=== PATIENT | male | born 1965 | race Caucasian/White ===

== ENCOUNTER 2017-07-27 06:07 | Emergency (ER) | payer SELFPAY, OTHER | END 2017-07-27 08:40 | disposition left against medical advice (07) | LOC: FTE 06:07 | DX: Z53.21 Procedure and treatment not carried out due to patient leaving prior to being seen by health care provider (principal) ==

== ENCOUNTER 2017-07-27 11:03 | Emergency (ER) | payer OTHER ==
[2017-07-27] MEDS: ONDANSETRON 4 MG INJ IV (12:34)
[2017-07-27] MEDS: morphine 10 MG INJ IV (12:34)
[2017-07-27 12:50] LABS: ADD MAN DIFF? NO
[2017-07-27 12:55] LABS: BASOPHILS % 0.5 % (0.0-2.0); EOSINOPHILS # 0.2 10^3/ul (0.0-0.5); HEMATOCRIT 34.8 % (42.0-52.0); LYMPHOCYTES # 1.9 10^3/ul (0.8-2.9); LYMPHOCYTES % 23.5 % (15.0-51.0); MEAN CORPUSCULAR HEMOGLOBIN 28.5 pg (29.0-33.0); MEAN CORPUSCULAR HGB CONC 31.6 g/dl (32.0-37.0); MEAN CORPUSCULAR VOLUME 90.2 fl (82.0-101.0); MEAN PLATELET VOLUME 10.3 fl (7.4-10.4); MONOCYTE # 0.7 10^3/ul (0.3-0.9); MONOCYTES % 8.6 % (0.0-11.0); NEUTROPHIL # 5.2 10^3/ul (1.6-7.5); NEUTROPHILS % 64.2 % (39.0-77.0); PLATELET COUNT 267 10^3/UL (140-415); RED BLOOD COUNT 3.86 10^6/ul (4.70-6.10); RED CELL DISTRIBUTION WIDTH 17.5 % (11.5-14.5)
[2017-07-27 14:04] LABS: ALANINE AMINOTRANSFERASE 19 IU/L (13-69); ALBUMIN 4.2 g/dl (3.3-4.9); ALKALINE PHOSPHATASE 95 IU/L (42-121); AMYLASE 138 U/L (11-123); ANION GAP 16 (8-16); ASPARTATE AMINO TRANSFERASE 31 IU/L (15-46); BILIRUBIN,INDIRECT 0.3 mg/dl (0-1.1); BILIRUBIN,TOTAL 0.3 mg/dl (0.2-1.3); BLOOD UREA NITROGEN 17 mg/dl (7-20); CALCIUM 9.2 mg/dl (8.4-10.2); CARBON DIOXIDE 32 mmol/L (21-31); CHLORIDE 105 mmol/L (97-110); CREATININE 1.37 mg/dl (0.61-1.24); GLUCOSE 105 mg/dl (70-220); LIPASE 368 U/L (23-300); POTASSIUM 4.2 mmol/L (3.5-5.1); SODIUM 149 mmol/L (135-144); TOTAL PROTEIN 8.4 g/dl (6.1-8.1)
[2017-07-27 14:10] LABS: INR 0.99; PROTIME 13.2 Sec (11.9-14.9)
[2017-07-27 14:29] LABS: ADD UMIC YES; UR ASCORBIC ACID NEGATIVE (NEGATIVE); UR BILIRUBIN (Dip) NEGATIVE (NEGATIVE); UR BLOOD (Dip) NEGATIVE (NEGATIVE); UR CLARITY SLIGHTLY CLOUDY (CLEAR); UR COLOR GREEN (YELLOW); UR GLUCOSE (Dip) NEGATIVE (NEGATIVE); UR KETONES (Dip) NEGATIVE (NEGATIVE); UR LEUKOCYTE ESTERASE (Dip) TRACE Leu/ul (NEGATIVE); UR NITRITE (Dip) NEGATIVE (NEGATIVE); UR RBC 0 /HPF (0-5); UR TOTAL PROTEIN (Dip) NEGATIVE (NEGATIVE); UR UROBILINOGEN (Dip) NEGATIVE (NEGATIVE); UR WBC 1 /HPF (0-5)
[2017-07-27] MEDS: CEFTRIAXONE 500 MG INJ IVPB (15:46)
[2017-07-27] MEDS: SOD CHLORIDE 0.9% 1,000 ML IV (15:46)
[2017-07-27] MEDS: AZITHROMYCIN 250 MG TAB PO (15:49)
[2017-07-27] MEDS: TAMSULOSIN (SR) 0.4 MG CAP PO (16:18)
== END 2017-07-27 17:00 | disposition home or self-care (01) ==
LOC: FTE 17:00
DX: N45.1 Epididymitis (principal); N43.3 Hydrocele, unspecified; I10 Essential (primary) hypertension; E11.9 Type 2 diabetes mellitus without complications; Z87.891 Personal history of nicotine dependence
CPT/HCPCS: 51702; 74176; 76870; 80053; 81001; 82150; 83690; 85025; 85610; 85730; 96374; 96375; 99285-25

== ENCOUNTER 2017-10-01 04:13 | Emergency (ER) | payer OTHER, MEDICAID ==
[2017-10-01 07:19] LABS: ADD MAN DIFF? NO
[2017-10-01 07:24] LABS: WHITE BLOOD COUNT 7.8 10^3/ul (4.8-10.8)
[2017-10-01 07:24] LABS: BASOPHIL # 0.1 10^3/ul (0.0-0.1); BASOPHILS % 0.8 % (0.0-2.0); EOSINOPHILS # 0.2 10^3/ul (0.0-0.5); HEMATOCRIT 33.5 % (42.0-52.0); HEMOGLOBIN 10.8 g/dl (14.0-18.0); LYMPHOCYTES # 1.5 10^3/ul (0.8-2.9); LYMPHOCYTES % 19.7 % (15.0-51.0); MEAN CORPUSCULAR HEMOGLOBIN 28.7 pg (29.0-33.0); MEAN CORPUSCULAR HGB CONC 32.2 g/dl (32.0-37.0); MEAN CORPUSCULAR VOLUME 89.1 fl (82.0-101.0); MEAN PLATELET VOLUME 10.3 fl (7.4-10.4); MONOCYTE # 0.6 10^3/ul (0.3-0.9); MONOCYTES % 7.8 % (0.0-11.0); NEUTROPHIL # 5.3 10^3/ul (1.6-7.5); NEUTROPHILS % 68.4 % (39.0-77.0); PLATELET COUNT 171 10^3/UL (140-415); RED BLOOD COUNT 3.76 10^6/ul (4.70-6.10); RED CELL DISTRIBUTION WIDTH 16.2 % (11.5-14.5)
[2017-10-01 07:42] LABS: ADD UMIC NO; UR ASCORBIC ACID NEGATIVE (NEGATIVE); UR BILIRUBIN (Dip) NEGATIVE (NEGATIVE); UR BLOOD (Dip) NEGATIVE (NEGATIVE); UR CLARITY CLEAR (CLEAR); UR COLOR STRAW (YELLOW); UR GLUCOSE (Dip) NEGATIVE (NEGATIVE); UR KETONES (Dip) NEGATIVE (NEGATIVE); UR LEUKOCYTE ESTERASE (Dip) NEGATIVE Leu/ul (NEGATIVE); UR NITRITE (Dip) NEGATIVE (NEGATIVE); UR SPECIFIC GRAVITY (Dip) 1.006 (1.003-1.030); UR TOTAL PROTEIN (Dip) NEGATIVE (NEGATIVE); UR UROBILINOGEN (Dip) NEGATIVE (NEGATIVE)
[2017-10-01 07:43] LABS: ALANINE AMINOTRANSFERASE 34 IU/L (13-69); ALBUMIN 4.2 g/dl (3.3-4.9); ALBUMIN/GLOBULIN RATIO 1.16; ALKALINE PHOSPHATASE 119 IU/L (42-121); ANION GAP 12 (8-16); ASPARTATE AMINO TRANSFERASE 23 IU/L (15-46); BILIRUBIN,INDIRECT 0.5 mg/dl (0-1.1); BILIRUBIN,TOTAL 0.5 mg/dl (0.2-1.3); BLOOD UREA NITROGEN 11 mg/dl (7-20); CALCIUM 9.2 mg/dl (8.4-10.2); CARBON DIOXIDE 27 mmol/L (21-31); CHLORIDE 107 mmol/L (97-110); CREATININE 1.09 mg/dl (0.61-1.24); GLUCOSE 88 mg/dl (70-220); LIPASE 76 U/L (23-300); POTASSIUM 3.7 mmol/L (3.5-5.1); SODIUM 142 mmol/L (135-144); TOTAL PROTEIN 7.8 g/dl (6.1-8.1)
[2017-10-01 08:00] LABS: CREATINE KINASE 128 IU/L (23-200)
[2017-10-01] MEDS: FUROSEMIDE 20 MG TAB PO (08:46)
[2017-10-01] MEDS: NAPROXEN 500 MG TAB PO (08:46)
== END 2017-10-01 09:00 | disposition home or self-care (01) ==
LOC: E/R 04:13
DX: M79.661 Pain in right lower leg (principal); M79.662 Pain in left lower leg; R60.0 Localized edema; Z87.891 Personal history of nicotine dependence
CPT/HCPCS: 36415; 80053; 81003; 82550; 83690; 85025; 93970; 99284-25

== ENCOUNTER 2017-10-10 11:00 | Emergency (ER) | payer OTHER, MEDICAID ==
[2017-10-10 13:43] LABS: ADD MAN DIFF? NO
[2017-10-10 13:49] LABS: BASOPHILS % 0.4 % (0.0-2.0); EOSINOPHILS # 0.2 10^3/ul (0.0-0.5); EOSINOPHILS % 1.7 % (0.0-7.0); HEMATOCRIT 31.5 % (42.0-52.0); HEMOGLOBIN 10.2 g/dl (14.0-18.0); IMMATURE GRANS #M 0.02 10^3/ul; IMMATURE GRANS % (M) 0.2 %; LYMPHOCYTES # 1.6 10^3/ul (0.8-2.9); LYMPHOCYTES % 15.9 % (15.0-51.0); MEAN CORPUSCULAR HEMOGLOBIN 29.2 pg (29.0-33.0); MEAN CORPUSCULAR HGB CONC 32.4 g/dl (32.0-37.0); MEAN CORPUSCULAR VOLUME 90.3 fl (82.0-101.0); MEAN PLATELET VOLUME 9.6 fl (7.4-10.4); MONOCYTE # 0.9 10^3/ul (0.3-0.9); MONOCYTES % 8.5 % (0.0-11.0); NEUTROPHIL # 7.3 10^3/ul (1.6-7.5); NEUTROPHILS % 73.3 % (39.0-77.0); PLATELET COUNT 242 10^3/UL (140-415); RED BLOOD COUNT 3.49 10^6/ul (4.70-6.10); RED CELL DISTRIBUTION WIDTH 15.8 % (11.5-14.5)
[2017-10-10] MEDS: KETOROLAC 30 MG INJ IM (14:06)
[2017-10-10 14:09] LABS: ALANINE AMINOTRANSFERASE 28 IU/L (13-69); ALBUMIN 3.8 g/dl (3.3-4.9); ALBUMIN/GLOBULIN RATIO 1.02; ALKALINE PHOSPHATASE 87 IU/L (42-121); ANION GAP 11 (8-16); ASPARTATE AMINO TRANSFERASE 30 IU/L (15-46); BILIRUBIN,INDIRECT 0.2 mg/dl (0-1.1); BILIRUBIN,TOTAL 0.2 mg/dl (0.2-1.3); BLOOD UREA NITROGEN 10 mg/dl (7-20); CALCIUM 8.9 mg/dl (8.4-10.2); CARBON DIOXIDE 29 mmol/L (21-31); CHLORIDE 104 mmol/L (97-110); CREATININE 1.12 mg/dl (0.61-1.24); GLUCOSE 64 mg/dl (70-220); POTASSIUM 3.4 mmol/L (3.5-5.1); SODIUM 141 mmol/L (135-144); TOTAL PROTEIN 7.5 g/dl (6.1-8.1)
[2017-10-10 14:20] LABS: TROPONIN-I < 0.010 ng/ml (0.000-0.120)
== END 2017-10-10 15:14 | disposition home or self-care (01) ==
LOC: FTE 11:00
DX: R07.89 Other chest pain (principal); F17.210 Nicotine dependence, cigarettes, uncomplicated; E11.9 Type 2 diabetes mellitus without complications
CPT/HCPCS: 36415; 71045; 80053; 82962; 84484; 85025; 93005; 96372; 99285-25

== ENCOUNTER 2017-10-30 18:58 | Emergency (ER) | payer SELFPAY, OTHER | END 2017-10-30 22:05 | disposition left against medical advice (07) | LOC: FTE 18:58 | DX: Z53.21 Procedure and treatment not carried out due to patient leaving prior to being seen by health care provider (principal) ==

== ENCOUNTER 2017-11-05 03:05 | Emergency (ER) | payer OTHER ==
[2017-11-05 04:26] LABS: ADD MAN DIFF? NO
[2017-11-05 04:27] LABS: BASOPHILS % 0.4 % (0.0-2.0); EOSINOPHILS # 0.3 10^3/ul (0.0-0.5); EOSINOPHILS % 2.7 % (0.0-7.0); HEMATOCRIT 33.9 % (42.0-52.0); HEMOGLOBIN 10.7 g/dl (14.0-18.0); LYMPHOCYTES # 1.7 10^3/ul (0.8-2.9); LYMPHOCYTES % 17.5 % (15.0-51.0); MEAN CORPUSCULAR HGB CONC 31.6 g/dl (32.0-37.0); MEAN CORPUSCULAR VOLUME 88.7 fl (82.0-101.0); MONOCYTE # 0.8 10^3/ul (0.3-0.9); MONOCYTES % 7.9 % (0.0-11.0); NEUTROPHILS % 71.2 % (39.0-77.0); PLATELET COUNT 171 10^3/UL (140-415); RED BLOOD COUNT 3.82 10^6/ul (4.70-6.10); RED CELL DISTRIBUTION WIDTH 15.4 % (11.5-14.5)
[2017-11-05 04:27] LABS: WHITE BLOOD COUNT 9.8 10^3/ul (4.8-10.8)
[2017-11-05 04:46] LABS: ANION GAP 12 (8-16); BLOOD UREA NITROGEN 16 mg/dl (7-20); CALCIUM 9.4 mg/dl (8.4-10.2); CARBON DIOXIDE 30 mmol/L (21-31); CHLORIDE 102 mmol/L (97-110); CREATININE 1.15 mg/dl (0.61-1.24); GLUCOSE 151 mg/dl (70-220); POTASSIUM 3.6 mmol/L (3.5-5.1); SODIUM 140 mmol/L (135-144)
[2017-11-05 04:48] LABS: INR 1.03; PROTIME 13.6 Sec (11.9-14.9); PT RATIO 1.1
[2017-11-05 04:49] LABS: PARTIAL THROMBOPLASTIN TIME 31.4 Sec (25.0-35.0)
[2017-11-05] MEDS: IOHEXOL 300MG/ML 150 ML BTL (04:57)
[2017-11-05] MEDS: SOD CHLORIDE 0.9% 100 ML (04:57)
[2017-11-05 04:58] LABS: TROPONIN-I < 0.012 ng/ml (0.000-0.120)
[2017-11-05] MEDS: ONDANSETRON 4 MG INJ IV (05:17)
[2017-11-05] MEDS: morphine 4 MG/ML VIAL IV (06:18)
[2017-11-05] MEDS: SOD CHLORIDE 0.9% 1,000 ML IV (06:42)
[2017-11-05] MEDS: NALOXONE (0.4 MG/ML) INJ IV (06:43)
[2017-11-05] MEDS: hydrALAzine 20 MG INJ IV (07:22)
[2017-11-05 07:32] LABS: AMPHETAMINE/METHAMPHETAMINE Positive (NEGATIVE); BARBITURATES Negative (NEGATIVE); BENZODIAZEPINES Negative (NEGATIVE); CANNABINOIDS Negative (NEGATIVE); COCAINE Negative (NEGATIVE); OPIATES Positive (NEGATIVE)
[2017-11-05 07:49] LABS: LIPASE 25 U/L (23-300)
[2017-11-05] MEDS: METOPROLOL (XL) 50 MG TAB PO (10:38)
== END 2017-11-05 12:00 | disposition home or self-care (01) ==
LOC: E/R 03:05
DX: S16.1XXA Strain of muscle, fascia and tendon at neck level, initial encounter (principal); T40.2X1A Poisoning by other opioids, accidental (unintentional), initial encounter; F11.10 Opioid abuse, uncomplicated; I10 Essential (primary) hypertension; E11.9 Type 2 diabetes mellitus without complications; M79.602 Pain in left arm; R51 Headache; X58.XXXA Exposure to other specified factors, initial encounter; Y92.9 Unspecified place or not applicable; Z87.891 Personal history of nicotine dependence
CPT/HCPCS: 36415; 70450; 70496; 70498; 71045; 80048; 80307; 83690; 84484; 85025; 85610; 85730; 93005; 96361; 96374; 96375; 99291-25

== ENCOUNTER 2017-11-06 08:05 | Emergency (ER) | payer OTHER ==
[2017-11-06] MEDS: IBUPROFEN 800 MG TAB PO (08:44)
== END 2017-11-06 08:48 | disposition home or self-care (01) ==
LOC: E/R 08:05
DX: N40.1 Benign prostatic hyperplasia with lower urinary tract symptoms (principal); R39.16 Straining to void; B30.9 Viral conjunctivitis, unspecified; M54.2 Cervicalgia; I10 Essential (primary) hypertension; E11.9 Type 2 diabetes mellitus without complications; F17.210 Nicotine dependence, cigarettes, uncomplicated
CPT/HCPCS: 99283; Z7502

== ENCOUNTER 2017-11-21 18:26 | Emergency (ER) | payer OTHER ==
[2017-11-21] MEDS: LIDOCAINE 1% (MDV) 10 ML INJ INJ (19:05)
[2017-11-21] MEDS: DIPHTH/TET/ACEL PERTUSS (ADULT) 0.5 ML VIAL IM* (20:05)
[2017-11-21] MEDS: KETOROLAC 15 MG INJ IV (20:06)
== END 2017-11-22 | disposition home or self-care (01) ==
LOC: E/R 11-22
DX: S01.511A Laceration without foreign body of lip, initial encounter (principal); I10 Essential (primary) hypertension; E11.9 Type 2 diabetes mellitus without complications; V18.0XXA Pedal cycle driver injured in noncollision transport accident in nontraffic accident, initial encounter; Z23 Encounter for immunization; Z87.891 Personal history of nicotine dependence
CPT/HCPCS: 12011; 70450; 72125; 90471; 90715; 96374; 99285-25

== ENCOUNTER 2018-02-01 03:03 | Emergency (ER) | payer OTHER ==
[2018-02-01 05:00] LABS: BARBITURATES Negative (NEGATIVE); BENZODIAZEPINES Negative (NEGATIVE); CANNABINOIDS Negative (NEGATIVE); COCAINE Negative (NEGATIVE); OPIATES Negative (NEGATIVE)
[2018-02-01 05:02] LABS: AMPHETAMINE/METHAMPHETAMINE Positive (NEGATIVE)
[2018-02-01 05:28] LABS: ADD MAN DIFF? NO
[2018-02-01 05:29] LABS: WHITE BLOOD COUNT 7.8 10^3/ul (4.8-10.8)
[2018-02-01 05:29] LABS: BASOPHILS % 0.1 % (0.0-2.0); EOSINOPHILS % 0.5 % (0.0-7.0); HEMATOCRIT 38.8 % (42.0-52.0); HEMOGLOBIN 12.7 g/dl (14.0-18.0); LYMPHOCYTES # 0.8 10^3/ul (0.8-2.9); LYMPHOCYTES % 9.6 % (15.0-51.0); MEAN CORPUSCULAR HEMOGLOBIN 28.6 pg (29.0-33.0); MEAN CORPUSCULAR HGB CONC 32.7 g/dl (32.0-37.0); MEAN CORPUSCULAR VOLUME 87.4 fl (82.0-101.0); MEAN PLATELET VOLUME 10.6 fl (7.4-10.4); MONOCYTE # 0.8 10^3/ul (0.3-0.9); MONOCYTES % 10.4 % (0.0-11.0); NEUTROPHIL # 6.2 10^3/ul (1.6-7.5); NEUTROPHILS % 79.1 % (39.0-77.0); PLATELET COUNT 206 10^3/UL (140-415); RED BLOOD COUNT 4.44 10^6/ul (4.70-6.10); RED CELL DISTRIBUTION WIDTH 16.2 % (11.5-14.5)
[2018-02-01] MEDS: NICARDipine HCL 30 MG CAPSULE PO (05:38)
[2018-02-01 05:53] LABS: ALANINE AMINOTRANSFERASE 19 IU/L (13-69); ALBUMIN 4.5 g/dl (3.3-4.9); ALKALINE PHOSPHATASE 134 IU/L (42-121); ANION GAP 13 (5-13); ASPARTATE AMINO TRANSFERASE 52 IU/L (15-46); BILIRUBIN,INDIRECT 0.8 mg/dl (0-1.1); BILIRUBIN,TOTAL 0.8 mg/dl (0.2-1.3); BLOOD UREA NITROGEN 18 mg/dl (7-20); CALCIUM 9.8 mg/dl (8.4-10.2); CARBON DIOXIDE 25 mmol/L (21-31); CHLORIDE 102 mmol/L (97-110); CREATININE 1.54 mg/dl (0.61-1.24); Estimated GFR 48 mL/min (>60); GLUCOSE 106 mg/dl (70-220); POTASSIUM 4.1 mmol/L (3.5-5.1); SODIUM 140 mmol/L (135-144); TOTAL PROTEIN 9.5 g/dl (6.1-8.1)
[2018-02-01 05:54] LABS: ACETAMINOPHEN < 10.0 ug/ml (10.0-30.0); ETHANOL < 10.0 mg/dl (0-0); SALICYLATE < 1.0 mg/dl (5.0-30.0)
[2018-02-01] MEDS: TAMSULOSIN (SR) 0.4 MG CAP PO (06:48)
[2018-02-01] MEDS: LOPERAMIDE 2 MG CAP PO (08:40)
== END 2018-02-01 18:21 ==
LOC: E/R 03:03
DX: T43.622A Poisoning by amphetamines, intentional self-harm, initial encounter (principal); R40.2142 Coma scale, eyes open, spontaneous, at arrival to emergency department; R40.2252 Coma scale, best verbal response, oriented, at arrival to emergency department; R40.2362 Coma scale, best motor response, obeys commands, at arrival to emergency department; I10 Essential (primary) hypertension; E11.9 Type 2 diabetes mellitus without complications; Z87.891 Personal history of nicotine dependence
CPT/HCPCS: 80053; 80307; 82962; 85025; 99285

== ENCOUNTER 2018-08-01 06:25 | Inpatient (IN) | payer OTHER ==
[2018-08-01] MEDS: NALOXONE 2 MG SYG IV (06:30)
[2018-08-01] MEDS: FENTAnyl (DRIP) 1000 mcg/100mL 100 ML IV (07:00)
[2018-08-01] MEDS: PROPOFOL 100 ML IV (07:00)
[2018-08-01] MEDS ORDERED: SUCCINYLCHOLINE CHLORIDE 100 MG/5 ML SYG IV (07:00)
[2018-08-01] MEDS ORDERED: ETOMIDATE 20 MG INJ (07:00)
[2018-08-01] MEDS: niCARdipine-NS 0.1MG/ML DRIP 200 ML IV (07:28)
[2018-08-01] MEDS: SOD CHLORIDE 0.9% 1,000 ML IV (07:33)
[2018-08-01] MEDS: ETOMIDATE 20 MG INJ IV (07:33)
[2018-08-01] MEDS: ONDANSETRON 4 MG INJ IV (07:33)
[2018-08-01] MEDS: SUCCINYLCHOLINE CHLORIDE 100 MG/5 ML SYG IV (07:33)
[2018-08-01 07:39] LABS: ADD MAN DIFF? NO
[2018-08-01] MEDS: CEFEPIME 2GM/50 ML (PMX) 50 ML IVPB (07:40)
[2018-08-01] MEDS: SODIUM CHLORIDE 0.9% 1L BAG IV* (07:40)
[2018-08-01 07:42] LABS: ABNORMAL IP MESSAGE 1; BASOPHIL # 0.1 10^3/ul (0.0-0.1); BASOPHILS % 0.3 % (0.0-2.0); EOSINOPHILS # 0.1 10^3/ul (0.0-0.5); EOSINOPHILS % 0.4 % (0.0-7.0); HEMATOCRIT 45.7 % (42.0-52.0); HEMOGLOBIN 14.7 g/dl (14.0-18.0); LYMPHOCYTES # 1.9 10^3/ul (0.8-2.9); LYMPHOCYTES % 7.8 % (15.0-51.0); MEAN CORPUSCULAR HEMOGLOBIN 28.5 pg (29.0-33.0); MEAN CORPUSCULAR HGB CONC 32.2 g/dl (32.0-37.0); MEAN CORPUSCULAR VOLUME 88.7 fl (82.0-101.0); MONOCYTE # 0.8 10^3/ul (0.3-0.9); MONOCYTES % 3.3 % (0.0-11.0); NEUTROPHIL # 21.4 10^3/ul (1.6-7.5); NEUTROPHILS % 87.5 % (39.0-77.0); PLATELET COUNT 224 10^3/UL (140-415); POSITIVE DIFF @See below; RED BLOOD COUNT 5.15 10^6/ul (4.70-6.10)
[2018-08-01 07:42] LABS: WHITE BLOOD COUNT 24.5 10^3/ul (4.8-10.8)
[2018-08-01 07:49] LABS: AADO2 Arterial 243.7 mmHg (7.0-24.0); Allen Test ACCEPTAB; Arterial Base Excess -2.7 mmol/L (-3.0-3); Arterial Blood Gas Oxygen Sat 99.4 mmHG (95.0-98.0); Arterial COHb 0.1 % (0.0-3.0); Arterial MetHb 0.3 % (0.0-1.5); Arterial pCO2 71.4 mmhg (35-45); MODE VENT - AC; Site Right Radial
[2018-08-01 08:01] LABS: INR 0.89; PARTIAL THROMBOPLASTIN TIME 28.8 Sec (23.0-35.0); PROTIME 12.2 Sec (11.9-14.9)
[2018-08-01 08:09] LABS: ALANINE AMINOTRANSFERASE 25 IU/L (13-69); ALBUMIN 5.1 g/dl (3.3-4.9); ALKALINE PHOSPHATASE 155 IU/L (42-121); ANION GAP 13 (5-13); ASPARTATE AMINO TRANSFERASE 36 IU/L (15-46); BILIRUBIN,INDIRECT 0.7 mg/dl (0-1.1); BILIRUBIN,TOTAL 0.7 mg/dl (0.2-1.3); BLOOD UREA NITROGEN 20 mg/dl (7-20); CALCIUM 9.8 mg/dl (8.4-10.2); CARBON DIOXIDE 28 mmol/L (21-31); CHLORIDE 102 mmol/L (97-110); CREATININE 1.22 mg/dl (0.61-1.24); Estimated GFR > 60 mL/min (>60); GLUCOSE 302 mg/dl (70-220); LIPASE 64 U/L (23-300); MAGNESIUM 2.1 mg/dl (1.7-2.5); POTASSIUM 3.7 mmol/L (3.5-5.1); SODIUM 143 mmol/L (135-144); TOTAL PROTEIN 9.7 g/dl (6.1-8.1)
[2018-08-01] MEDS: VANCOMYCIN 1 GM (PMX) 250 ML IVPB (08:11)
[2018-08-01 08:18] LABS: TROPONIN-I < 0.012 ng/ml (0.000-0.120)
[2018-08-01 08:30] LABS: ADD UMIC YES; UR ASCORBIC ACID NEGATIVE (NEGATIVE); UR BILIRUBIN (Dip) NEGATIVE (NEGATIVE); UR BLOOD (Dip) 1+ mg/dL (NEGATIVE); UR CLARITY CLEAR (CLEAR); UR COLOR STRAW (YELLOW); UR GLUCOSE (Dip) 3+ mg/dL (NEGATIVE); UR KETONES (Dip) NEGATIVE (NEGATIVE); UR LEUKOCYTE ESTERASE (Dip) NEGATIVE Leu/ul (NEGATIVE); UR NITRITE (Dip) NEGATIVE (NEGATIVE); UR RBC 1 /HPF (0-5); UR SPECIFIC GRAVITY (Dip) 1.006 (1.003-1.030); UR TOTAL PROTEIN (Dip) 2+ mg/dl (NEGATIVE); UR UROBILINOGEN (Dip) NEGATIVE (NEGATIVE); UR WBC 1 /HPF (0-5)
[2018-08-01 08:53] LABS: AMPHETAMINE/METHAMPHETAMINE Negative (NEGATIVE); BARBITURATES Negative (NEGATIVE); BENZODIAZEPINES Negative (NEGATIVE); CANNABINOIDS Negative (NEGATIVE); COCAINE Negative (NEGATIVE); OPIATES Positive (NEGATIVE)
[2018-08-01] MEDS ORDERED: NACL 0.9% 3 ML SYG IV (09:00)
[2018-08-01] MEDS ORDERED: HYDROmorphONE 0.5 MG/0.5 ML SYG IV (09:00)
[2018-08-01 09:01] LABS: ETHANOL < 10.0 mg/dl (0-0)
[2018-08-01] MEDS ORDERED: DEXTROSE 50% 50 ML SYRINGE IV (09:30)
[2018-08-01] MEDS ORDERED: VANCOMYCIN IV PER PHARMACY XX (09:30)
[2018-08-01] MEDS: ACCU-CHEK XX ×8 (09:35→21:00)
[2018-08-01] MEDS: FAMOTIDINE 20 MG INJ IV ×2 (09:36→21:54)
[2018-08-01] MEDS: INSULIN HUMAN REGULAR 100 UNIT in SOD CHLORIDE 0.9% 99 ML IV (09:37)
[2018-08-01] MEDS: LACTATED RINGER'S 1,000 ML IV ×2 (09:41→22:58)
[2018-08-01] MEDS: LACTATED RINGER'S 500 ML IV ×2 (10:12→10:57)
[2018-08-01] MEDS: NORepinephrine 8MG/250 ML (PMX 250 ML IV (10:30)
[2018-08-01] MEDS ORDERED: NORepinephrine 8MG/250 ML (PMX 250 ML (10:31)
[2018-08-01 10:56] LABS: FREE T4 (FREE THYROXINE) 1.37 ng/dl (0.64-1.79)
[2018-08-01] MEDS: HYDROCORTISONE 100 MG INJ IV (11:01)
[2018-08-01 11:27] LABS: LACTIC ACID 1.4 mmol/L (0.5-2.0)
[2018-08-01 12:19] LABS: HEPATITIS C VIRAL ANTIBODY NEGATIVE (NEGATIVE)
[2018-08-01 14:28] LABS: LACTIC ACID 1.1 mmol/L (0.5-2.0)
[2018-08-01] MEDS: DEXTROSE 50% 50 ML SYRINGE IV (14:46)
[2018-08-01] MEDS: VANCOMYCIN HCL 1.5 GM in SOD CHLORIDE 0.9% 250 ML IVPB (17:26)
[2018-08-02] MEDS: ACCU-CHEK XX ×6 (01:00→21:00)
[2018-08-02 05:27] LABS: ADD MAN DIFF? NO
[2018-08-02 05:30] LABS: BASOPHILS % 0.3 % (0.0-2.0); EOSINOPHILS # 0.2 10^3/ul (0.0-0.5); EOSINOPHILS % 1.2 % (0.0-7.0); HEMATOCRIT 35.4 % (42.0-52.0); HEMOGLOBIN 11.5 g/dl (14.0-18.0); LYMPHOCYTES # 2.3 10^3/ul (0.8-2.9); LYMPHOCYTES % 15.9 % (15.0-51.0); MEAN CORPUSCULAR HEMOGLOBIN 28.8 pg (29.0-33.0); MEAN CORPUSCULAR HGB CONC 32.5 g/dl (32.0-37.0); MEAN CORPUSCULAR VOLUME 88.5 fl (82.0-101.0); MEAN PLATELET VOLUME 10.7 fl (7.4-10.4); MONOCYTES % 6.6 % (0.0-11.0); NEUTROPHIL # 10.9 10^3/ul (1.6-7.5); NEUTROPHILS % 75.4 % (39.0-77.0); PLATELET COUNT 208 10^3/UL (140-415); RED CELL DISTRIBUTION WIDTH 15.3 % (11.5-14.5)
[2018-08-02 05:30] LABS: WHITE BLOOD COUNT 14.4 10^3/ul (4.8-10.8)
[2018-08-02 05:36] LABS: AADO2 Arterial 164.5 mmHg (7.0-24.0); Allen Test ACCEPTAB; Arterial Base Excess 0.2 mmol/L (-3.0-3); Arterial Blood Gas Oxygen Sat 95.3 mmHG (95.0-98.0); Arterial COHb 0.5 % (0.0-3.0); Arterial Fraction of Oxyhgb 94.6 % (93.0-99.0); Arterial MetHb 0.2 % (0.0-1.5); Arterial pCO2 40.9 mmhg (35-45); MODE VENT - AC; Site Right Radial
[2018-08-02 05:58] LABS: LACTIC ACID 1.1 mmol/L (0.5-2.0)
[2018-08-02 06:04] LABS: ALANINE AMINOTRANSFERASE 24 IU/L (13-69); ALBUMIN 3.1 g/dl (3.3-4.9); ALKALINE PHOSPHATASE 71 IU/L (42-121); ANION GAP 4 (5-13); ASPARTATE AMINO TRANSFERASE 26 IU/L (15-46); BILIRUBIN,INDIRECT 1.6 mg/dl (0-1.1); BILIRUBIN,TOTAL 1.6 mg/dl (0.2-1.3); BLOOD UREA NITROGEN 33 mg/dl (7-20); CALCIUM 8.8 mg/dl (8.4-10.2); CARBON DIOXIDE 26 mmol/L (21-31); CHLORIDE 117 mmol/L (97-110); CREATININE 2.31 mg/dl (0.61-1.24); Estimated GFR 30 mL/min (>60); GLUCOSE 117 mg/dl (70-220); SODIUM 147 mmol/L (135-144); TOTAL PROTEIN 6.2 g/dl (6.1-8.1)
[2018-08-02 07:11] LABS: HEMOGLOBIN A1C 5.9 % (0-5.9)
[2018-08-02] MEDS: FAMOTIDINE 20 MG INJ IV ×2 (08:26→20:05)
[2018-08-02] MEDS: LACTATED RINGER'S 500 ML IV (10:28)
[2018-08-02] MEDS: LACTATED RINGER'S 1,000 ML IV ×2 (11:34→18:25)
[2018-08-02] MEDS: LIDOCAINE 1% (MPF) 5 ML VIAL SC ×2 (14:13→14:14)
[2018-08-02] MEDS: NORepinephrine 8MG/250 ML (PMX 250 ML IV (20:14)
[2018-08-03] MEDS: ACCU-CHEK XX ×6 (01:35→21:20)
[2018-08-03 04:36] LABS: AADO2 Arterial 130.5 mmHg (7.0-24.0); Allen Test ACCEPTAB; Arterial Base Excess -0.8 mmol/L (-3.0-3); Arterial Blood Gas Oxygen Sat 97.8 mmHG (95.0-98.0); Arterial COHb 0 % (0.0-3.0); Arterial Fraction of Oxyhgb 97.6 % (93.0-99.0); Arterial HCO3 23.9 mmol/L (22.0-26.0); Arterial MetHb 0.2 % (0.0-1.5); Arterial pCO2 39.6 mmhg (35-45); MODE VENT - AC; Site Right Radial
[2018-08-03 05:19] LABS: ADD MAN DIFF? NO
[2018-08-03 05:23] LABS: BASOPHIL # 0.1 10^3/ul (0.0-0.1); BASOPHILS % 0.3 % (0.0-2.0); EOSINOPHILS # 0.4 10^3/ul (0.0-0.5); EOSINOPHILS % 2.5 % (0.0-7.0); HEMATOCRIT 35.6 % (42.0-52.0); HEMOGLOBIN 11.5 g/dl (14.0-18.0); LYMPHOCYTES # 1.3 10^3/ul (0.8-2.9); LYMPHOCYTES % 9.2 % (15.0-51.0); MEAN CORPUSCULAR HGB CONC 32.3 g/dl (32.0-37.0); MEAN CORPUSCULAR VOLUME 89.9 fl (82.0-101.0); MEAN PLATELET VOLUME 11.7 fl (7.4-10.4); MONOCYTE # 1.1 10^3/ul (0.3-0.9); MONOCYTES % 7.4 % (0.0-11.0); NEUTROPHIL # 11.7 10^3/ul (1.6-7.5); PLATELET COUNT 169 10^3/UL (140-415); RED BLOOD COUNT 3.96 10^6/ul (4.70-6.10); RED CELL DISTRIBUTION WIDTH 15.8 % (11.5-14.5)
[2018-08-03 05:23] LABS: WHITE BLOOD COUNT 14.6 10^3/ul (4.8-10.8)
[2018-08-03 05:39] LABS: LACTIC ACID 1.8 mmol/L (0.5-2.0)
[2018-08-03 05:46] LABS: ANION GAP 4 (5-13); BLOOD UREA NITROGEN 39 mg/dl (7-20); CALCIUM 9.2 mg/dl (8.4-10.2); CARBON DIOXIDE 26 mmol/L (21-31); CHLORIDE 121 mmol/L (97-110); CREATININE 3.44 mg/dl (0.61-1.24); Estimated GFR 19 mL/min (>60); GLUCOSE 110 mg/dl (70-220); POTASSIUM 4.6 mmol/L (3.5-5.1); SODIUM 151 mmol/L (135-144)
[2018-08-03 05:48] LABS: VANCOMYCIN,RANDOM 12.3 ug/ml
[2018-08-03] MEDS: LACTATED RINGER'S 1,000 ML IV (07:54)
[2018-08-03] MEDS: FAMOTIDINE 20 MG INJ IV (08:25)
[2018-08-03 09:26] LABS: AADO2 Arterial 12.6 mmHg (7.0-24.0); Allen Test ACCEPTAB; Arterial Base Excess -3.7 mmol/L (-3.0-3); Arterial Blood Gas Oxygen Sat 98.9 mmHG (95.0-98.0); Arterial COHb 0 % (0.0-3.0); Arterial Fraction of Oxyhgb 98.6 % (93.0-99.0); Arterial MetHb 0.3 % (0.0-1.5); Arterial pCO2 62.3 mmhg (35-45); MODE NASAL CANNULA; Site Right Radial
[2018-08-03] MEDS: DEXTROSE 5%-0.225% NACL 1,000 ML IV (13:28)
[2018-08-03] MEDS: PIPER-TAZO 2.25 GM (PMX) 50 ML IVPB ×2 (13:31→21:19)
[2018-08-03 13:44] LABS: TROPONIN-I 0.078 ng/ml (0.000-0.120)
[2018-08-03] MEDS: VANCOMYCIN 1 GM 250 ML IVPB (16:53)
[2018-08-03 19:50] LABS: TROPONIN-I 0.151 ng/ml (0.000-0.120)
[2018-08-04] MEDS: NORepinephrine 8MG/250 ML (PMX 250 ML IV ×2 (00:19→21:55)
[2018-08-04] MEDS: ACCU-CHEK XX ×6 (01:05→21:26)
[2018-08-04] MEDS ORDERED: DESMOPRESSIN 4 MCG INJ SC (03:30)
[2018-08-04] MEDS: DEXTROSE 5%-0.225% NACL 1,000 ML IV (04:59)
[2018-08-04 05:39] LABS: ADD MAN DIFF? NO
[2018-08-04] MEDS: PIPER-TAZO 2.25 GM (PMX) 50 ML IVPB ×3 (05:41→21:51)
[2018-08-04] MEDS: DESMOPRESSIN 4 MCG INJ SC (05:42)
[2018-08-04 05:50] LABS: WHITE BLOOD COUNT 10.4 10^3/ul (4.8-10.8)
[2018-08-04 05:51] LABS: BASOPHILS % 0.3 % (0.0-2.0); EOSINOPHILS # 0.4 10^3/ul (0.0-0.5); EOSINOPHILS % 3.6 % (0.0-7.0); HEMATOCRIT 34.3 % (42.0-52.0); LYMPHOCYTES % 9.4 % (15.0-51.0); MEAN CORPUSCULAR HEMOGLOBIN 28.9 pg (29.0-33.0); MEAN CORPUSCULAR HGB CONC 32.1 g/dl (32.0-37.0); MEAN CORPUSCULAR VOLUME 90.3 fl (82.0-101.0); MONOCYTE # 0.9 10^3/ul (0.3-0.9); MONOCYTES % 8.7 % (0.0-11.0); NEUTROPHIL # 8.1 10^3/ul (1.6-7.5); NEUTROPHILS % 77.5 % (39.0-77.0); PLATELET COUNT 145 10^3/UL (140-415); RED CELL DISTRIBUTION WIDTH 15.7 % (11.5-14.5)
[2018-08-04 05:58] LABS: ALANINE AMINOTRANSFERASE 25 IU/L (13-69); ALBUMIN 2.5 g/dl (3.3-4.9); ALKALINE PHOSPHATASE 114 IU/L (42-121); ASPARTATE AMINO TRANSFERASE 25 IU/L (15-46); BILIRUBIN,INDIRECT 0.9 mg/dl (0-1.1); BILIRUBIN,TOTAL 0.9 mg/dl (0.2-1.3); TOTAL PROTEIN 5.5 g/dl (6.1-8.1)
[2018-08-04 05:59] LABS: ANION GAP 3 (5-13); BLOOD UREA NITROGEN 44 mg/dl (7-20); CALCIUM 9.4 mg/dl (8.4-10.2); CARBON DIOXIDE 26 mmol/L (21-31); CHLORIDE 124 mmol/L (97-110); Estimated GFR 13 mL/min (>60); GLUCOSE 120 mg/dl (70-220); MAGNESIUM 2.2 mg/dl (1.7-2.5); PHOSPHORUS 3.3 mg/dl (2.5-4.9); POTASSIUM 4.5 mmol/L (3.5-5.1); SODIUM 153 mmol/L (135-144)
[2018-08-04 06:06] LABS: INR 1.25; PROTIME 15.8 Sec (11.9-14.9); PT RATIO 1.2
[2018-08-04 06:07] LABS: PARTIAL THROMBOPLASTIN TIME 42.4 Sec (23.0-35.0)
[2018-08-04 06:35] LABS: CREATININE 4.58 mg/dl (0.61-1.24)
[2018-08-04] MEDS: DEXTROSE 5% 1,000 ML IV ×3 (11:26→21:52)
[2018-08-04 12:07] LABS: OSMOLALITY 326 mOsm/kg (280-295)
[2018-08-04 15:26] LABS: ANION GAP 2 (5-13); BLOOD UREA NITROGEN 50 mg/dl (7-20); CALCIUM 9.4 mg/dl (8.4-10.2); CARBON DIOXIDE 27 mmol/L (21-31); CHLORIDE 121 mmol/L (97-110); CREATININE 5.03 mg/dl (0.61-1.24); Estimated GFR 12 mL/min (>60); GLUCOSE 128 mg/dl (70-220); POTASSIUM 5.2 mmol/L (3.5-5.1); SODIUM 150 mmol/L (135-144)
[2018-08-04 18:52] LABS: SODIUM,URINE RANDOM 35 mmol/L (30-90)
[2018-08-04 18:55] LABS: CREATININE,URINE RANDOM 211.73 mg/dl (20-370)
[2018-08-04 18:56] LABS: ADD UMIC YES; UR ASCORBIC ACID NEGATIVE (NEGATIVE); UR BACTERIA FEW /HPF (NONE SEEN); UR BILIRUBIN (Dip) NEGATIVE (NEGATIVE); UR BLOOD (Dip) 2+ mg/dL (NEGATIVE); UR CLARITY SLIGHTLY CLOUDY (CLEAR); UR COLOR AMBER (YELLOW); UR GLUCOSE (Dip) NEGATIVE (NEGATIVE); UR GRANULAR CAST FEW /HPF (NONE SEEN); UR KETONES (Dip) NEGATIVE (NEGATIVE); UR LEUKOCYTE ESTERASE (Dip) TRACE Leu/ul (NEGATIVE); UR NITRITE (Dip) NEGATIVE (NEGATIVE); UR RBC 6 /HPF (0-5); UR SPECIFIC GRAVITY (Dip) 1.017 (1.003-1.030); UR TOTAL PROTEIN (Dip) 1+ mg/dl (NEGATIVE); UR TRANSITIONAL EPI CELL FEW /HPF (NONE SEEN); UR UROBILINOGEN (Dip) NEGATIVE (NEGATIVE); UR WBC 16 /HPF (0-5)
[2018-08-04 19:00] LABS: OSMOLALITY,URINE 382 mOsm/kg (250-1200)
[2018-08-05] MEDS: ACCU-CHEK XX ×6 (01:41→21:00)
[2018-08-05 05:09] LABS: ADD MAN DIFF? NO
[2018-08-05 05:14] LABS: BASOPHILS % 0.2 % (0.0-2.0); EOSINOPHILS # 0.3 10^3/ul (0.0-0.5); EOSINOPHILS % 3.9 % (0.0-7.0); HEMATOCRIT 33.4 % (42.0-52.0); HEMOGLOBIN 10.5 g/dl (14.0-18.0); LYMPHOCYTES # 1.1 10^3/ul (0.8-2.9); LYMPHOCYTES % 12.4 % (15.0-51.0); MEAN CORPUSCULAR HEMOGLOBIN 28.3 pg (29.0-33.0); MEAN CORPUSCULAR HGB CONC 31.4 g/dl (32.0-37.0); MEAN PLATELET VOLUME 11.9 fl (7.4-10.4); MONOCYTE # 0.9 10^3/ul (0.3-0.9); MONOCYTES % 10.6 % (0.0-11.0); NEUTROPHIL # 6.3 10^3/ul (1.6-7.5); NEUTROPHILS % 72.6 % (39.0-77.0); PLATELET COUNT 143 10^3/UL (140-415); RED BLOOD COUNT 3.71 10^6/ul (4.70-6.10); RED CELL DISTRIBUTION WIDTH 15.9 % (11.5-14.5)
[2018-08-05 05:14] LABS: WHITE BLOOD COUNT 8.7 10^3/ul (4.8-10.8)
[2018-08-05 05:58] LABS: ALANINE AMINOTRANSFERASE 19 IU/L (13-69); ALBUMIN/GLOBULIN RATIO 0.93; ALKALINE PHOSPHATASE 154 IU/L (42-121); ANION GAP 7 (5-13); ASPARTATE AMINO TRANSFERASE 38 IU/L (15-46); BILIRUBIN,INDIRECT 0.8 mg/dl (0-1.1); BILIRUBIN,TOTAL 0.8 mg/dl (0.2-1.3); BLOOD UREA NITROGEN 54 mg/dl (7-20); CARBON DIOXIDE 25 mmol/L (21-31); CHLORIDE 118 mmol/L (97-110); CREATININE 6.03 mg/dl (0.61-1.24); Estimated GFR 10 mL/min (>60); GLUCOSE 132 mg/dl (70-220); MAGNESIUM 1.9 mg/dl (1.7-2.5); PHOSPHORUS 4.8 mg/dl (2.5-4.9); SODIUM 150 mmol/L (135-144); TOTAL PROTEIN 6.2 g/dl (6.1-8.1)
[2018-08-05] MEDS: PIPER-TAZO 2.25 GM (PMX) 50 ML IVPB ×3 (06:22→21:10)
[2018-08-05] MEDS: DEXTROSE 5% 1,000 ML IV ×2 (11:08→21:02)
[2018-08-06] MEDS: ACCU-CHEK XX ×3 (01:00→08:45)
[2018-08-06] MEDS: NORepinephrine 8MG/250 ML (PMX 250 ML IV (01:42)
[2018-08-06] MEDS: PIPER-TAZO 2.25 GM (PMX) 50 ML IVPB (05:14)
[2018-08-06 05:58] LABS: WHITE BLOOD COUNT 6.7 10^3/ul (4.8-10.8)
[2018-08-06 05:58] LABS: HEMATOCRIT 32.2 % (42.0-52.0); HEMOGLOBIN 10.2 g/dl (14.0-18.0); MEAN CORPUSCULAR HEMOGLOBIN 28.7 pg (29.0-33.0); MEAN CORPUSCULAR HGB CONC 31.7 g/dl (32.0-37.0); MEAN CORPUSCULAR VOLUME 90.7 fl (82.0-101.0); MEAN PLATELET VOLUME 10.7 fl (7.4-10.4); PLATELET COUNT 112 10^3/UL (140-415); POSITIVE DIFF @See below; RED BLOOD COUNT 3.55 10^6/ul (4.70-6.10); RED CELL DISTRIBUTION WIDTH 15.9 % (11.5-14.5)
[2018-08-06 06:08] LABS: ADD MAN DIFF? YES
[2018-08-06 06:15] LABS: PHOSPHORUS 7.4 mg/dl (2.5-4.9)
[2018-08-06 06:25] LABS: VANCOMYCIN,RANDOM 11.2 ug/ml
[2018-08-06 06:29] LABS: ALANINE AMINOTRANSFERASE 37 IU/L (13-69); ALBUMIN 2.9 g/dl (3.3-4.9); ALBUMIN/GLOBULIN RATIO 0.85; ALKALINE PHOSPHATASE 188 IU/L (42-121); ANION GAP 9 (5-13); ASPARTATE AMINO TRANSFERASE 118 IU/L (15-46); BILIRUBIN,INDIRECT 0.8 mg/dl (0-1.1); BILIRUBIN,TOTAL 0.8 mg/dl (0.2-1.3); BLOOD UREA NITROGEN 63 mg/dl (7-20); CALCIUM 8.3 mg/dl (8.4-10.2); CARBON DIOXIDE 23 mmol/L (21-31); CHLORIDE 116 mmol/L (97-110); Estimated GFR 8 mL/min (>60); GLUCOSE 152 mg/dl (70-220); POTASSIUM 5.1 mmol/L (3.5-5.1); SODIUM 148 mmol/L (135-144); TOTAL PROTEIN 6.3 g/dl (6.1-8.1)
[2018-08-06 08:53] LABS: ANISOCYTOSIS 1+ (0-0); BAND NEUTROPHILS #M 0.5 10^3/ul (0.0-0.6); BAND NEUTROPHILS % (M) 8 % (0-4); BURR CELLS 1+ (0-0); EOSINOPHILS % (M) 2 % (0-7); GIANT THROMBO% (M) 1 % (0-0); LYMPHOCYTES #M 0.7 10^3/ul (0.8-2.9); LYMPHOCYTES % (M) 11 % (15-51); METAMYELOCYTES %M 1 % (0-0); MONOCYTE #M 0.5 10^3/ul (0.3-0.9); MONOCYTES % (M) 8 % (0-11); PLATELET ESTIMATE DECREASED; POIKILOCYTOSIS 2+ (0-0); POLYCHROMASIA 2+ (0-0); SEG NEUT #M 4.7 10^3/ul (1.6-7.5); SEGMENTED NEUTROPHILS (M) % 70 % (39-77); SMUDGE%M 2 % (0-0)
[2018-08-06] MEDS ORDERED: VANCOMYCIN 1 GM 250 ML IVPB (10:00)
[2018-08-07 15:02] LABS: CREATININE, RANDOM URINE 292 mg/dL (20-320); MICROALBUMIN 10.5 mg/dL; MICROALBUMIN/CREATININE RATIO 36 (<30)
== END 2018-08-06 17:09 | disposition expired | DRG 870 ==
LOC: E/R 06:25 → ICU 07:18
PROC: 5A1955Z Respiratory Ventilation, Greater than 96 Consecutive Hours (ICD-10-PCS; principal; 2018-08-01)
PROC: 0BH17EZ Insertion of Endotracheal Airway into Trachea, Via Natural or Artificial Opening (ICD-10-PCS; 2018-08-01)
PROC: 05H533Z Insertion of Infusion Device into Right Subclavian Vein, Percutaneous Approach (ICD-10-PCS; 2018-08-02)
DX: A41.9 Sepsis, unspecified organism (principal); R65.21 Severe sepsis with septic shock; J96.02 Acute respiratory failure with hypercapnia; G93.5 Compression of brain; J69.0 Pneumonitis due to inhalation of food and vomit; N17.0 Acute kidney failure with tubular necrosis; I61.5 Nontraumatic intracerebral hemorrhage, intraventricular; G93.6 Cerebral edema; G93.49 Other encephalopathy; G93.1 Anoxic brain damage, not elsewhere classified; E87.0 Hyperosmolality and hypernatremia; K92.2 Gastrointestinal hemorrhage, unspecified; E11.9 Type 2 diabetes mellitus without complications; R40.2432 Glasgow coma scale score 3-8, at arrival to emergency department; Z59.0 Homelessness; I46.9 Cardiac arrest, cause unspecified; R57.8 Other shock; E05.80 Other thyrotoxicosis without thyrotoxic crisis or storm; T40.601A Poisoning by unspecified narcotics, accidental (unintentional), initial encounter
CPT/HCPCS: 31500; 36600; 70450; 71045; 78606; 80048; 80053; 80076; 80202; 80307; 81001; 81003; 82043; 82803; 82962; 83036; 83605; 83690; 83735; 83930; 83935; 84100; 84155; 84300; 84439; 84443; 84484; 85025; 85610; 85730; 86803; 86850; 86900; 86901; 87040-91; 87081; 87086; 93005; 94002; 94003; 94770; 99285-25